=== PATIENT | female | born 1955 | race American Indian/Alaskan Native ===

== ENCOUNTER 2016-10-14 08:39 | Day surgery (SDC) | payer MEDICARE ==
[2016-10-14 10:12] LABS: INR 0.93 (0.87-1.13); Partial Thromboplastin Time 29.5 Sec. (24.2-36.6)
[2016-10-14 12:44] VITALS: BP 145/71
--- NOTE | 2016-10-14 15:22 | Ultrasound Report ---
ULTRASOUND BIOPSY THYROID ULTRASOUND BIOPSY THYROID HISTORY: Nontoxic multinodular goiter, bilateral thyroid nodules. DESCRIPTION OF PROCEDURE: Informed consent was obtained. Sterile technique was utilized. 1% lidocaine for skin anesthesia. Using ultrasound guidance, fine needle aspiration and Rotex biopsy was performed on a 3.5 cm nodule in the inferior right thyroid lobe and a 3.2 cm nodule in the mid left thyroid lobe. The samples were deemed adequate by the pathologist on site. No complications. IMPRESSION: Successful bilateral thyroid biopsy as described.
--- NOTE | 2016-10-15 13:37 | Short Stay Summary ---
Short Stay Documentation Date of service: 10/15/16 - History Principal diagnosis: thyroid nodules H&P: obtained from office - Allergies and Medications Current Medications: Allergies codeine Adverse Reaction (Unverified 10/14/16 08:42) Vomiting iodine Adverse Reaction (Unverified 10/14/16 08:42) INSTANT SWELLING OF FACE,NECK EARS Sulfa (Sulfonamide Antibiotics) Adverse Reaction (Unverified 10/14/16 08:42) Rash NUTS Adverse Reaction (Uncoded 10/14/16 08:42) Swelling OF THROAT Home Medications Medication Instructions Recorded Confirmed Last Taken Type Amlodipine Besylate/Benazepril 1 tab PO DAILY 10/14/16 10/14/16 10/13/16 History [Amlodipine-Benazepril 5-20 mg] Cyclobenzaprine [Flexeril] 10 mg PO DAILY 10/14/16 10/14/16 10/13/16 History Gabapentin [Gabapentin] 300 mg PO TID PRN 10/14/16 10/14/16 10/13/16 History Metoprolol [Lopressor] 100 mg PO DAILY 10/14/16 10/14/16 10/13/16 History Rosuvastatin Calcium 40 mg PO DAILY 10/14/16 10/14/16 10/13/16 History Temazepam [Restoril] 30 mg PO DAILY 10/14/16 10/14/16 10/13/16 History - Physical exam General appearance: no acute distress HEENT: PERRLA, Mucous membr. moist/pink - Brief post op/procedure progress note Date of procedure: 10/14/16 Pre-op diagnosis: thyroid nodules Post-op diagnosis: same Procedure: US thyroid biopsy bilateral Anesthesia: local Findings: bilateral thyroid nodules Surgeon: CHARISSE LEMONS Estimated blood loss: none Pathology: list (FNA, rotex biopsy) Specimen disposition: to lab Condition: stable - Disposition Condition at discharge: Good Short Stay Discharge Plan Follow up with: ATILIO GOTTLIEB MD [Primary Care Provider] - 7 Days
== END 2016-10-14 08:40 ==
LOC: OPU 08:39 → EDSTATUS 09:00
PROVIDERS: ATTEND Specialist
DX: E04.2 Nontoxic multinodular goiter (principal); Z79.01 Long term (current) use of anticoagulants
CPT/HCPCS: 36415; 60100; 76942; 85610; 85730; 88112; 88172; 88173; 88305